=== PATIENT | female | born 1980 | race Caucasian/White ===

== ENCOUNTER 2019-03-15 12:58 | Emergency (ER) | payer OTHER ==
[~2019-03-15] VITALS: Ht 165.1 cm; Wt 61.2 kg
[~2019-03-15 12:58] MED LIST: ALBU90OI INH; AMIT50 PO; AMOCLA875 PO; AMOX500 PO; AZIT250 PO; Bactrim Ds Tab1 EACH PO; CETI10 PO; CITA20 PO; CODACE30 PO; CODGUAEL PO; CYCL10 PO; Cipro500 MG PO; DULO30; FLUO20; FLUT110OIA IH; GABA100 PO; GABA300 PO; HYDACE10B PO; HYDACE5 PO; HYDGUAL120 PO; HYDHCL25 PO; IBUP200; IBUP600 PO; IBUP800 PO; LEVFLO500 PO; MAGCIT300 PO; NAPR500 PO; NEOPOLHYD OP; NITR100CA PO; NORT10 PO; Norco 5-325 Ta1 EACH PO; ONDA4 PO; ONDA4ODT MM; OXYACE5T PO; OXYM.05NI; PERM5TC TOP; PHENA100 PO; PRED10 PO; PRED20 PO; PROM25 PO; Prilosec40 MG PO; Pyridium100 MG PO; RXCYCL10 PO; RXERYTOPTH OU; RXHYDACE PO; RXOXYACE PO; RXPHEN200 PO; RXPROM25 PO; RXSULTRIDS PO; SULTRIDS PO; Veetids 500500 MG PO; Zofran Odt4 MG SL; Zofran4 MG PO; Zofran8 MG PO; [UNRECOGNIZED DRUG - OTHER]
== END 2019-03-15 15:04 | disposition home or self-care (01) ==
LOC: ER 12:58
DX: L76.32 Postprocedural hematoma of skin and subcutaneous tissue following other procedure (principal); Z87.891 Personal history of nicotine dependence
CPT/HCPCS: 76604; 99283-25